=== PATIENT | male | born 1970 | race Caucasian/White ===

== ENCOUNTER 2018-04-09 10:55 | Outpatient (CLI) | payer BC, SELFPAY ==
[2018-04-09 13:10] LABS: ALT 41 U/L (12-78); AST 31 U/L (15-37); Albumin 4.3 g/dL (3.4-5.0); Alkaline Phosphatase 135 U/L (46-116); Anion Gap 9.4 mmol/L (3-11); BUN 18 mg/dL (7-18); Bilirubin, Total 0.5 mg/dL (0.2-1.0); CO2 29.6 mmol/L (21.0-32.0); CREATININE 1.05 mg/dL (0.70-1.30); Calcium 10.4 mg/dL (8.5-10.1); Chloride 99 mmol/L (98-107); Glucose 88 mg/dL (70-100); Potassium 3.7 mmol/L (3.5-5.1); Sodium 138 mmol/L (136-145)
[2018-04-12 06:36] LABS: Vitamin D 25 Total 17.6 ng/ml (30-100)
[2018-04-12 10:43] LABS: Parathyroid Hormone,Intact 30 pg/ml (19-88)
== END 2018-04-09 11:15 ==
PROVIDERS: PCP Family Medicine; Visit Provider Family Medicine
DX: E83.52 Hypercalcemia (principal); I10 Essential (primary) hypertension
CPT/HCPCS: 36415; 80053; 82306; 83970

== ENCOUNTER 2020-06-29 03:26 | Outpatient (CLI) | payer MEDICAID, SELFPAY ==
[2020-06-29 09:15] LABS: ALT 28 U/L (16-63); AST 22 U/L (15-37); Albumin 4.2 g/dL (3.4-5.0); Alkaline Phosphatase 121 U/L (46-116); BUN 16 mg/dL (7-18); Bilirubin, Total 0.8 mg/dL (0.2-1.0); CREATININE 0.9 mg/dL (0.70-1.30); Calcium 10.1 mg/dL (8.5-10.1); Calculated LDL 122 mg/dL (<100); Chloride 101 mmol/L (98-107); Cholesterol 194 mg/dL (<200); Glucose 90 mg/dL (74-106); HDL Cholesterol 51 mg/dL (40-60); Potassium 3.3 mmol/L (3.5-5.1); Sodium 141 mmol/L (136-145); Triglyceride 109 mg/dL (<150)
== END 2020-06-29 03:27 | disposition home or self-care (01) ==
LOC: LBO 03:26
PROVIDERS: PCP Family Medicine; Visit Provider Family Medicine
DX: I10 Essential (primary) hypertension (principal)
CPT/HCPCS: 36415; 80053; 80061

== ENCOUNTER 2021-07-24 03:18 | Outpatient (CLI) | payer MEDICAID, SELFPAY ==
[2021-07-24 13:40] LABS: Anion Gap 8.3 mmol/L (3-11); BUN 18 mg/dL (7-18); CO2 28.7 mmol/L (21.0-32.0); Calcium 9.9 mg/dL (8.5-10.1); Chloride 101 mmol/L (98-107); Glucose 84 mg/dL (74-106); Potassium 3.3 mmol/L (3.5-5.1); Sodium 138 mmol/L (136-145)
== END 2021-07-24 03:19 | disposition home or self-care (01) ==
LOC: LBO 03:18
PROVIDERS: PCP Family Medicine; Visit Provider Family Medicine
DX: E87.6 Hypokalemia (principal)
CPT/HCPCS: 36415; 80048

== ENCOUNTER 2022-06-30 00:57 | Outpatient (CLI) | payer MEDICAID, SELFPAY ==
--- NOTE | 2022-06-30 07:45 | DI.RAD_ITS ---
Exam(s) XR LUMBAR SPINE COMP W FLEX/EX EXAM: XR LUMBAR SPINE COMP W FLEX/EX CLINICAL HISTORY: eval for stenosis,LISTHESIS, BONY PATHOLOGY,BACK PAIN,DDD,M54.9,M51.36. TECHNIQUE: 2D digital imaging was performed. Seven views. Flexion and extension lateral views were performed in addition to the neutral lateral view. COMPARISON: No exams were available for comparison FINDINGS: BONES: No fracture or destructive lesion. Vertebral body heights are maintained. facet hypertrophy identified at L4-5 and L5-S1.. DISKS: Mild narrowing of the L4-5 disc space. The remaining intervertebral disc spaces are maintaine d. ALIGNMENT: Minimal spondylo listhesis at L4-5 secondary to facet degenerative changes.. There is no subluxation with flexion or extension. No scoliosis. SOFT TISSUE: Normal. IMPRESSION: Mild degenerative changes at L4-5. DATA REPOSITORY: RADIATION DOSE DELIVERED:
== END 2022-06-30 01:17 ==
LOC: DI 00:57
PROVIDERS: PCP Family Medicine; Visit Provider Student in an Organized Health Care Education/Training Program
DX: M51.36 Other intervertebral disc degeneration, lumbar region (principal); M54.59 Other low back pain; M47.817 Spondylosis without myelopathy or radiculopathy, lumbosacral region
CPT/HCPCS: 72114

== ENCOUNTER 2022-06-30 03:08 | Outpatient (CLI) | payer MEDICAID, SELFPAY ==
[2022-06-30 15:35] LABS: BUN 15 mg/dL (7-18); Calcium 10.5 mg/dL (8.5-10.1); Chloride 99 mmol/L (98-107); Estimated GFR 91.69 (mL/min/1.73m2); Glucose 90 mg/dL (74-106); Sodium 141 mmol/L (136-145)
[2022-06-30 15:40] LABS: Potassium 2.8 mmol/L (3.5-5.1)
== END 2022-06-30 03:09 | disposition home or self-care (01) ==
PROVIDERS: PCP Family Medicine; Visit Provider Family Medicine
DX: E87.6 Hypokalemia (principal)
CPT/HCPCS: 36415; 80048

== ENCOUNTER 2022-07-07 03:09 | Outpatient (CLI) | payer MEDICAID, SELFPAY ==
[2022-07-07 12:06] LABS: Potassium 3.2 mmol/L (3.5-5.1)
== END 2022-07-07 03:10 | disposition home or self-care (01) ==
PROVIDERS: PCP Family Medicine; Visit Provider Nurse Practitioner
DX: E87.6 Hypokalemia (principal)
CPT/HCPCS: 36415; 84132

== ENCOUNTER 2022-10-03 02:19 | Outpatient (CLI) | payer SELFPAY ==
[2022-10-03 16:43] LABS: Anion Gap 8.6 mmol/L (3-11); BUN 16 mg/dL (7-18); CO2 29.4 mmol/L (21.0-32.0); CREATININE 1.1 mg/dL (0.70-1.30); Chloride 102 mmol/L (98-107); Estimated GFR 81.28 (mL/min/1.73m2); Glucose 99 mg/dL (74-106); Potassium 3.1 mmol/L (3.5-5.1); Sodium 140 mmol/L (136-145)
== END 2022-10-03 02:20 | disposition home or self-care (01) ==
PROVIDERS: PCP Family Medicine; Visit Provider Family Medicine
DX: E87.6 Hypokalemia (principal); I10 Essential (primary) hypertension
CPT/HCPCS: 36415; 80048

== ENCOUNTER 2023-01-19 02:20 | Outpatient (CLI) | payer BC, SELFPAY ==
[2023-01-19 17:50] LABS: Anion Gap 10.3 mmol/L (3-11); BUN 12 mg/dL (7-18); CO2 26.7 mmol/L (21.0-32.0); CREATININE 1.1 mg/dL (0.70-1.30); Calcium 10.8 mg/dL (8.5-10.1); Chloride 100 mmol/L (98-107); Estimated GFR 81.28 (mL/min/1.73m2); Glucose 82 mg/dL (74-106); Sodium 137 mmol/L (136-145)
== END 2023-01-19 02:21 | disposition home or self-care (01) ==
LOC: LBO 02:20
PROVIDERS: PCP Family Medicine; Visit Provider Family Medicine
DX: E87.6 Hypokalemia (principal); I10 Essential (primary) hypertension
CPT/HCPCS: 36415; 80048

== ENCOUNTER 2024-06-30 03:01 | Outpatient (CLI) | payer BC, SELFPAY ==
[2024-06-30 08:36] LABS: Anion Gap 7.7 mmol/L (3-11); BUN 16 mg/dL (7-18); CO2 27.3 mmol/L (21.0-32.0); CREATININE 1.1 mg/dL (0.70-1.30); Calcium 10.1 mg/dL (8.5-10.1); Calculated LDL 114 mg/dL (<100); Chloride 104 mmol/L (98-107); Cholesterol 192 mg/dL (<200); Estimated GFR 80.77 (mL/min/1.73m2); Glucose 97 mg/dL (74-106); HDL Cholesterol 61 mg/dL (>or=40); Potassium 4.1 mmol/L (3.5-5.1); Sodium 139 mmol/L (136-145); Triglyceride 85 mg/dL (<150)
== END 2024-06-30 03:02 | disposition home or self-care (01) ==
PROVIDERS: PCP Family Medicine; Visit Provider Family Medicine
DX: I10 Essential (primary) hypertension (principal)
CPT/HCPCS: 36415; 80048; 80061